=== PATIENT | male | born 1960 | race Caucasian/White ===

== ENCOUNTER 2018-11-02 08:35 | Day surgery (SDC) | payer MEDICARE, MEDICAID ==
[2018-10-31 14:41] LABS: BLEEDING TIME 1.5 MINUTES (1.5-7.0)
[2018-10-31 15:32] LABS: BLOOD UREA NITROGEN 7 mg/dL (6-20); CREATININE 0.9 mg/dL (0.7-1.2); EST GLOMERULAR FILTRATION RATE > 60 mL/min; GLUCOSE,RANDOM 87 mg/dL (74-109)
[2018-10-31 15:43] LABS: PARTIAL THROMBOPLASTIN TIME 29.4 SECONDS (24.5-39.1); PROTHROMBIN TIME (PATIENT) 9.9 SECONDS (9.5-12.1)
--- NOTE | 2018-11-02 06:26 | History and Physical - [facility] ---
CHIEF COMPLAINT/HISTORY OF CHIEF COMPLAINT: This patient presents with a history of post lumbar laminectomy radiculopathy. Due to the failure of therapies including a spinal cord stimulator trial, the patient presents today for an implanted catheter trial with Hydromorphone to determine if the implantation of a permanent system can be of any value in pain control. PAST MEDICAL HISTORY: Seizure disorder. PAST SURGICAL HISTORY: Cervical and lumbar spinal fusion. MEDICATIONS ON ADMISSION: List to be provided. ALLERGIES: IBUPROFEN. FAMILY/PSYCHOSOCIAL HISTORY: Social history - Smoking, social alcohol, and caffeine. Family history - Diabetes, coronary artery disease, and hypertension. SYSTEMS REVIEW: The patient seems appropriate in no acute distress. The remainder of the systems review is positive for glasses, dentures, difficulty sleeping, and depression. PHYSICAL EXAMINATION: Height is 5'10", weight is 200 pounds. No vital signs. HEENT: Within normal limits. LUNGS: Clear. HEART: Rapid and regular. ABDOMEN: Nontender. MUSCULOSKELETAL: Examination of the musculoskeletal system shows the primary pain pattern extending across the back adjacent to the laminectomy scar and moving into both legs somewhat more left than right. There are sensory and motor abnormalities with weakness across the left leg. Sensory abnormalities across the anterior and posterior surfaces. Ambulation - Assistive device is utilized. NEUROLOGIC: Cranial nerves are intact. IMPRESSION: POST LUMBAR LAMINECTOMY SYNDROME, ICD-10 CODE M96.1 WITH LUMBAR RADICULOPATHY, ICD-10 CODE M54.16 AND M54.17. PLAN: This patient is here for an implanted spinal catheter infusion trial of Hydromorphone. This was actually performed initially on 09/02/08 with 75% pain control, but because of a number of factors at the time he did not move towards a permanent implant. We are repeating the trial, he has had a stimulator trial with no success, should this trial work a permanent implant will be considered. The potential risks, side effects, and complications have been carefully reviewed and discussed including spinal cord injury, nerve root injury, paralysis and . An epidural blood patch will be performed ideally to help prevent the incidence of a spinal headache. He will stay flat for four hours and then slowly elevated for one. He will be considered possible discharge although an overnight stay will be evaluated. As stated an implanted catheter trial will be conducted, the trial period will be two weeks, fourteen days, during this period we will schedule the possibility of three increases within the office setting, at the end of the trial period we will either remove the implanted catheter or implant the pump. All instructions were provided and the numbers to contact were given. He has been fully educated and has interacted with a clinical specialist from the company. JOB NUMBER: [id number] MTDD
[~2018-11-02 08:35] MED LIST: ACETAMINOPHEN 1,000 MG/100 ML BTL IV ONE; CEFAZOLIN 2 Gram 2 GM/50 ML BAG IVPB ONE; FAMOTIDINE 20MG TABLET PO ONE; HYDROMORPHONE PF 2MG/ML AMP 0.008 MG in 0.9 % SODIUM CHLORIDE 10ML VIA 0.996 ML IV ONE; HYDROMORPHONE PF 2MG/ML AMP 8 MG in 0.9 % SODIUM CHLORIDE 500ML 496 ML IV ONE; MECLIZINE 25 MG TABLET PO ONE; METOCLOPRAMIDE 10 MG TABLET PO ONE
[2018-11-02] MEDS ORDERED: PROPOFOL 10 MG/ML VIAL IV ONE (08:36)
[2018-11-02] MEDS ORDERED: LIDOCAINE 1% W/EPI 1:200,000 MPF 30ML SQ ONE (08:36)
[2018-11-02] MEDS ORDERED: LIDOCAINE 2% MDV (20MG/ML) 20ML VIAL IV ONE (08:36)
[2018-11-02] MEDS ORDERED: FENTANYL PF 100MCG/2ML VIAL IV ONE (08:36)
[2018-11-02] MEDS ORDERED: KETAMINE HCL 100MG/1ML VIAL INJ ONE (08:36)
[2018-11-02] MEDS ORDERED: CEFAZOLIN 1G VIAL IM ONE (08:36)
[2018-11-02] MEDS ORDERED: 0.9 % SODIUM CHLORIDE 10 ML VIAL IVP ONE (08:36)
[2018-11-02] MEDS ORDERED: MIDAZOLAM HCL 2MG/2ML VIAL IV ONE (08:36)
[2018-11-02] MEDS ORDERED: BUPIVACAINE 0.5% W/EPI MPF 30 ML VIAL IVP ONE (08:36)
[2018-11-02] MEDS ORDERED: ACETAMINOPHEN 325 MG TAB PO PRN ×2 (13:18)
[2018-11-02] MEDS ORDERED: NALOXONE 0.4 MG/1 ML VIAL IVP PRN (13:18)
[2018-11-02] MEDS ORDERED: DIPHENHYDRAMINE HCL 25 MG CAPSULE PO PRN ×2 (13:18)
[2018-11-02] MEDS ORDERED: SENNOSIDES/DOCUSATE SODIUM UD CAPSULE PO PRN ×2 (13:18)
[2018-11-02] MEDS ORDERED: HYDROMORPHONE HCL 2 MG/ML VIAL IM PRN (13:18)
[2018-11-02] MEDS ORDERED: HYDROCODONE/APAP 7.5/325MG TABLET PO PRN ×2 (13:18)
[2018-11-02] MEDS ORDERED: METOCLOPRAMIDE 10 MG TABLET PO PRN (13:18)
[2018-11-02] MEDS ORDERED: AL HYDROX/MAG HYDROX 30ML UD PO PRN (13:18)
[2018-11-02] MEDS ORDERED: DIPHENHYDRAMINE HCL 50 MG/ML VIAL IVP PRN ×2 (13:18)
[2018-11-02] MEDS ORDERED: METOCLOPRAMIDE HCL 10 MG/2 ML VIAL IVP PRN (13:18)
[2018-11-02] MEDS ORDERED: TEMAZEPAM 15 MG CAPSULE PO PRN ×2 (13:18)
[2018-11-02] MEDS ORDERED: OXYCODONE/APAP 10MG-325MG TABLET PO PRN ×2 (13:18)
[2018-11-02] MEDS: RINGERS SOLUTION,LACTATED 1,000 ML IV SCH ×2 (17:52→22:11)
[2018-11-02] MEDS: CEFAZOLIN 2 Gram 2 GM/50 ML BAG IVPB SCH (17:52)
[2018-11-02] MEDS: HYDROMORPHONE HCL 2 MG/ML VIAL IM PRN (21:53)
[2018-11-02] MEDS: VIMPAT 100 MG PO SCH (21:54)
[2018-11-03] MEDS: HYDROMORPHONE HCL 2 MG/ML VIAL IM PRN ×2 (02:35→09:28)
[2018-11-03] MEDS: CEFAZOLIN 2 Gram 2 GM/50 ML BAG IVPB SCH ×2 (02:36→09:28)
[2018-11-03] MEDS: RINGERS SOLUTION,LACTATED 1,000 ML IV SCH ×2 (02:42→05:18)
--- NOTE | 2018-11-03 08:36 | RADIOLOGY REPORT ---
EXAM: THORACIC SPINE HISTORY: PAIN PUMP PLACEMENT. TECHNIQUE: A single AP view of the thoracic spine was performed. FINDINGS: The pain pump tip appears to be at the T11-T12 level. IMPRESSION: PAIN PUMP TIP AT THE T11-T12 LEVEL. JOB NUMBER: [id number] MTDD
[2018-11-03] MEDS: VIMPAT 100 MG PO SCH (09:27)
--- NOTE | 2018-11-03 21:39 | Operative Note ---
DATE OF SURGERY: 11/02/2018 PREOPERATIVE DIAGNOSIS: POST LUMBAR LAMINECTOMY SYNDROME, ICD-10 CODE = M96.1 WITH LUMBAR RADICULOPATHY , ICD-10 CODE = M54.16 AND M54.17. SURGERY: 1. FLUOROSCOPIC-GUIDED ACCESS SPINAL SPACE AT L2-3, PLACEMENT OF THIN-WALLED SPINAL CATHETER T11. 2. DIAGNOSTIC MYELOGRAPHY WITH RADIOLOGIC SUPERVISION AND INTERPRETATION. 3. SPINAL OPIOID BOLUS HYDROMORPHONE 0.006 MG SPINAL SPACE. 4. INCISION, SUBCUTANEOUS DISSECTION, AND ANCHORING OF SPINAL CATHETER TO SUPRASPINOUS FASCIA WITH ANCHORING DEVICE AND NONABSORBABLE SUTURE. 5. INCISION, SUBCUTANEOUS DISSECTION, AND CREATION OF SUBCUTANEOUS POUCH AT RIGHT FLANK FOR PLACEMENT OF PUMP EVENTUALLY. 6. TUNNELING BETWEEN MIDLINE POUCH TO FLANK POUCH TUNNELING IMPLANTED CATHETER TO FLANK POUCH. 7. REVISION AND RESECTION OF INDWELLING SPINAL CATHETER WITH SECOND CATHETER COMPONENT AT FLANK POUCH. TUNNELING SECOND CATHETER COMPONENT 6 CM SUPERIOR, EXITING SKIN. 8. INTERFACE EXTERNAL CATHETER TO EXTERNAL PUMP SET TO DELIVER HYDROMORPHONE AT 0.08 MG A DAY. 9. EPIDURAL BLOOD PATCH AT L3-4, 20 ML AUTOLOGOUS BLOOD STERILE TECHNIQUE LEFT ANTECUBITAL. SURGEON: TREMAYNE CAI D.O. ANESTHESIA: LOCAL SEDATION. RUTH, FINISH CLEANER. INDICATIONS: This patient presents with a history of an intractable post lumbar laminectomy radiculopathy. His diagnostics do show laminectomy and complete disc collapse at L4-5 and 5-1. Pain pattern low back and legs, somewhat more left than right. He is here for an implanted spinal catheter infusion trial of Hydromorphone to determine if the implantation of a permanent system can be of any value in pain control. SURGERY: Intravenous line, vital sign monitoring, IV sedation by Anesthesia. Patient positioned prone. Sterile prep sterile technique. Under imaging, above the laminectomy, the spinal space at L2-3 marked, 3-4 marked. Skin infiltrated, then a #20 gauge spinal needle, paramedian approach beveled with a long axis inserted into the spinal space. A thin-walled spinal catheter was advanced and positioned upper endplate T11. With CSF flow confirming catheter placement, a diagnostic myelography was performed. The flow characteristics were smooth and appropriate in the space. No obstructions, no redirections. Catheter position confirmed. A bolus of Hydromorphone 0.006 mg given into spinal space. The skin above and below the needle infiltrated, incision made and subcutaneous dissection was conducted to the supraspinous fascia. The needle was removed and the catheter was anchored to the supraspinous fascia with an anchoring device and nonabsorbable suture. Although the patient had picked a site below the belt line to the right in the posterior gluteal margin for the pump, the area did not appear to be sufficient for a 20 mL pump. The skin above the belt line was infiltrated and felt to be a more appropriate location. Skin infiltrated, incision made, and a small pouch was formed subcutaneously. The spinal catheter was then tunneled to the flank pouch and then this catheter was interfaced with the second catheter component by way of a connector. This second catheter component was then tunneled 6 cm superior, exiting the skin. The external catheter was then interfaced with an external pump set to deliver Hydromorphone at 0.08 mg a day. The posterior flank pouch was closed with a running nylon. The midline incision was closed with Vicryl for facia and a running nylon. At L3 -4, which is above the laminectomy, and below the the catheter placement site, skin infiltrated. An #18 gauge Tuohy needle was used to access the epidural space. Simultaneously, 20 mL autologous blood drawn, sterile technique from the left antecubital. This blood was then placed onto the field and an epidural blood patch was performed at this level with this blood. Dressing was placed securing the catheter and all connections under sterile dressing. He was then transported to the recovery room flat, pillow under head and knees. He will stay flat for four hours, slowly elevated for one, and then be evaluated for possible discharge or an overnight stay for observation. DISCHARGE INSTRUCTIONS: 1. The sites are to remain clean and dry. He should not shower or bathe or do anything that will cause the dressings to get wet or be removed from the skin. Should the dressings come off, he should contact the Clinic immediately for re- dressing or reinforcement. 2. Standard medications resumed, including the antibiotic Levaquin. He will take 500 mg once a day for 14 days. 3. The trial is scheduled for two weeks, 14 days. During this period of time, three increases will be provided at the office, his first increase within the next 2 to 3 days. At the end of the trial period, we will either remove the implanted catheter or implant the pump, interfacing it to the indwelling catheter. During the trial period, spinal opioid side effects of respiratory depression, nausea, vomiting, constipation, urinary retention, lightheadedness, or rash have all been discussed and reviewed. He has a history of chronic migraine headaches. Will monitor. All other instructions provided. He will be seen in the office. cc: Dr. Singh JOB NUMBER: [id number] MTDD
== END 2018-11-03 11:15 | disposition home or self-care (01) ==
LOC: SUR 08:35 → MEDSURG 12:24 → SUR 11-03 11:15
PROVIDERS: ATTEND Pain Medicine Interventional Pain Medicine
DX: M96.1 Postlaminectomy syndrome, not elsewhere classified (principal); M54.16 Radiculopathy, lumbar region; M54.17 Radiculopathy, lumbosacral region; I10 Essential (primary) hypertension; R56.9 Unspecified convulsions; F12.90 Cannabis use, unspecified, uncomplicated
CPT/HCPCS: 62350; 62362; 01936; 62273; 85730; 85610; 80048; 85002; 72020; Q9967; J3010; J1170 ×3; J0690 ×2; J3490; J7040; J7120

== ENCOUNTER 2018-11-16 08:38 | Day surgery (SDC) | payer MEDICARE, MEDICAID ==
--- NOTE | 2018-11-15 18:44 | History and Physical - [facility] ---
DATE OF EVALUATION: 11/15/18 CHIEF COMPLAINT/HISTORY OF CHIEF COMPLAINT: This patient with a history of intractable post lumbar laminectomy radiculopathy has an ongoing implanted spinal catheter infusion trial with Hydromorphone. At this point, he is achieving somewhere approximating 50-75% pain control and feels that this is the best pain control he has ever had. Due to the failure of all other therapies , he is here for a permanent implant. PAST MEDICAL HISTORY: Seizure disorder. PAST SURGICAL HISTORY: Cervical and lumbar spinal fusion. MEDICATIONS: Provided. ALLERGIES: IBUPROFEN. FAMILY HISTORY/PSYCHOSOCIAL HISTORY: Smoking. Social alcohol. Caffeine. Diabetes. Coronary artery disease. Hypertension. SYSTEMS REVIEW: The patient seems appropriate in no acute distress although somewhat difficult to determine. Remainder of the systems review; glasses, dentures, difficulty with sleeping, depression. PHYSICAL EXAMINATION: GENERAL: Height is 5'10", weight is 200. VITAL SIGNS: No vital signs. HEENT: Within normal limits. LUNGS: Clear. HEART: Rapid and regular. ABDOMEN: Nontender. MUSCULOSKELETAL: Examination of the musculoskeletal system shows the dressings for the implanted catheter trial to be intact. Externalized pump is in place and functioning. Sensory dasilva are intact. NEUROLOGIC: Cranial nerves are intact. IMPRESSION: 1. POST LUMBAR LAMINECTOMY SYNDROME, ICD-10 CODE = M96.1 WITH RADICULOPATHY, ICD -10 CODE = M54.16 AND M54.17. 2. IMPLANTED SPINAL CATHETER INFUSION TRIAL HYDROMORPHONE. PLAN: With the failure of all therapy and the success of the implanted catheter trial, he is here for permanent implant. Our plan is to remove all of the external components and then place the pump subcutaneously and divert the indwelling the catheter into the pump, interface the pump to the spine. The procedure will be considered outpatient, an overnight stay can be evaluated. cc: Dr. Singh JOB NUMBER: [id number] MTDD
[~2018-11-16 08:38] MED LIST changes: +HYDROMORPHONE HCL 0.06 GM in 0.9 % SODIUM CHLORIDE 10ML VIA 20 ML IV ONE; -HYDROMORPHONE PF 2MG/ML AMP 8 MG in 0.9 % SODIUM CHLORIDE 500ML 496 ML IV ONE
[2018-11-16] MEDS ORDERED: MIDAZOLAM HCL 2MG/2ML VIAL IV ONE (08:39)
[2018-11-16] MEDS ORDERED: CEFAZOLIN 1G VIAL IM ONE (08:39)
[2018-11-16] MEDS ORDERED: LIDOCAINE 1% W/EPI 1:200,000 MPF 30ML SQ ONE (08:39)
[2018-11-16] MEDS ORDERED: 0.9 % SODIUM CHLORIDE 10 ML VIAL IVP ONE (08:39)
[2018-11-16] MEDS ORDERED: PROPOFOL 10 MG/ML VIAL IV ONE (08:39)
[2018-11-16] MEDS ORDERED: FENTANYL PF 100MCG/2ML VIAL IV ONE (08:39)
[2018-11-16] MEDS ORDERED: LIDOCAINE 2% MDV (20MG/ML) 20ML VIAL IV ONE (08:39)
[2018-11-16] MEDS ORDERED: BUPIVACAINE 0.5% W/EPI MPF 30 ML VIAL IVP ONE (08:39)
[2018-11-16] MEDS ORDERED: OXYCODONE/APAP 10MG-325MG TABLET PO ONE (08:39)
--- NOTE | 2018-11-19 08:47 | Operative Note - [facility] ---
DATE OF SURGERY: 11/16/18 PREOPERATIVE DIAGNOSES: 1. POST LUMBAR LAMINECTOMY SYNDROME, ICD-10 CODE = M96.1 WITH LUMBAR RADICULOPATHY, ICD-10 CODE = M54.16 AND M54.17. 2. IMPLANTED SPINAL CATHETER INFUSION TRIAL HYDROMORPHONE. OPERATION: 1. FLUOROSCOPICALLY-GUIDED INCISION, SUBCUTANEOUS DISSECTION, AND CREATION OF SUBCUTANEOUS POUCH AT RIGHT FLANK FOR PLACEMENT OF PUMP IDENTIFIED A MEDTRONIC 40 ML PROGRAMMABLE. 2. REVISION, RESECTION, AND REMOVAL OF EXTERNAL SPINAL CATHETER PULLING AWAY FROM INCISION. 3. REVISION AND RESECTION OF INDWELLING SPINAL CATHETER, INTERFACE SPINAL CATHETER TO SECOND CATHETER BY WAY OF CONNECTOR. 4. PLACEMENT OF 40 ML PROGRAMMABLE PUMP PRE-FILLED HYDROMORPHONE 1 MG PER ML, 20 ML FILL IN A 40 ML VOLUME, INTERFACED TO REVISED CATHETER. 5. PLACEMENT OF PUMP AND CATHETER COMBINATION INTO RIGHT FLANK POUCH SECURED TO POSTERIOR FASCIA WITH NONABSORBABLE SUTURE, THREE POINTS PUMP EYELETS. 6. PLACEMENT OF 24-GAUGE RIOS NEEDLE TO ACCESS PORT PROGRAMMABLE PUMP ASPIRATION CLEARING CATHETER OF OPIOID AND CSF MIXTURE. 7. DIAGNOSTIC MYELOGRAPHY THROUGH ACCESS PORT UNDER RADIOLOGIC SUPERVISION AND INTERPRETATION CONFIRMING FUNCTIONALITY OF THE CATHETER AND APPROPRIATE FLOW CHARACTERISTICS T11. 8. CLOSURE OF INCISION USING STRATAFIX SUTURE 2-0 FASCIA, 3-0 SKIN. DERMABOND CLOSURE. 9. PROGRAMMING OF PUMP TO DELIVER BY CONTINUOUS INFUSION HYDROMORPHONE AT 0.5 MG A DAY. SURGEON: TREMAYNE CAI D.O. ANESTHESIA: LOCAL SEDATION. ANESTHESIA PROVIDER: SERA Hair INDICATION: This patient presents with a history of an intractable post lumbar laminectomy radiculopathy has an implanted catheter infusion trial Hydromorphone ongoing due to the failure of therapy. With significant pain control functionality and the quality of life, he presents today for request for permanent implantation of a permanent system. Threshold required 50-75%. PROCEDURE: Intravenous line, vital sign monitoring, IV sedation, prepped and draped sterile technique. Patient position on the operating room table prone. Sterile prep, sterile technique. With imaging, the external dressings removed. The pump from the external catheter, catheter was clamped. Once all of the dressing was removed, sterile prep, sterile technique. At the right flank , a small subcutaneous pouch, which was created for the interface between and external catheter was infiltrated, incision made, and subcutaneous dissection was conducted to form a pouch of suitable size and depth for the pump identified as a Medtronic 40 mL Programmable, an appropriate sized pouch was formed. At that point, the indwelling catheter interfaced to the external catheter was identified. The catheter was clamped, cut, and the external catheter removed by pulling away from the incision. The indwelling spinal catheter was then resected and revised with a second catheter component by way of a connector. A 40 mL programmable pump pre-filled Hydromorphone was placed onto the field and interfaced with the revised catheter. Antibiotic irrigation and Bovie for hemostasis at the pouch formed for the pump, right flank. The pump was placed into the pouch and secured to the posterior fascia with nonabsorbable suture three points pump eyelets. With the pump in the pouch, a curved 24-gauge Rios needle was inserted into the access port and 1 mL of catheter contents was aspirated clearing the catheter of opioid and a CSF mixture. Contrast was injected through the access port. The diagnostic myelography after the catheter has been cleared, showed contrast under radiologic supervision and interpretation moving to the pump catheter connection. No kinks, bends, or leaks. Catheter tip T11 was identified with appropriate myelogram flow characteristics noted. Functionality to the system was confirmed. With the pump in the pouch, the incision was closed STRATAFIX suture 2-0 fascia, 3-0 skin. Dermabond closure. The pump was then programmed by continuous infusion to deliver 0.5 mg Hydromorphone per day. He was transported to the Recovery Room, stable. No side-effects from the procedure or the sedation. When fully awake and alert, by his request, prepared for discharge. DISCHARGE INSTRUCTIONS: 1. Sites remain clean and dry although the Dermabond will allow showering, he can shower but not sit in water. No tub. 2. Standard medications resumed including the antibiotic Levaquin, which he will take 500 mg once a day for 7 more days. 3. The office will contact the patient at home in the next 24-48 hours and set up a time in the next 7-10 days to evaluate the sites. Until then, he is to keep his activities low and controlled. All other instructions provided, numbers to contact, problems given. Spinal opioid side-effects; respiratory depression, nausea, vomiting, constipation, urinary retention, lightheadedness or rash have all been discussed and reviewed. He was then discharged. cc: Dr. Samantha ROWLAND NUMBER: [id number] MTDD
== END 2018-11-16 11:30 | disposition home or self-care (01) ==
LOC: SUR 08:38
PROVIDERS: ATTEND Pain Medicine Interventional Pain Medicine
DX: M96.1 Postlaminectomy syndrome, not elsewhere classified (principal); M54.16 Radiculopathy, lumbar region; M54.17 Radiculopathy, lumbosacral region; I10 Essential (primary) hypertension; G40.909 Epilepsy, unspecified, not intractable, without status epilepticus
CPT/HCPCS: 62350; 62362; 01936; 62367; 84132; Q9967; J3010; J0690; J1170; C1755; C1776